=== PATIENT | male | born 1970 | race African-American/Black ===

== ENCOUNTER 2021-02-06 17:51 | Emergency (ER) | payer MEDICARE, SELFPAY ==
[~2021-02-06] VITALS: Ht 177.8 cm; Wt 68.0 kg
[2021-02-06] MEDS ORDERED: SODIUM CHLORIDE 0.9% 1,000 ML IV ONE (18:30)
[2021-02-06 19:32] LABS: HEMATOCRIT. 39.9 % (42.0-52.0); MEAN CORPUSCULAR HEMOGLOBIN 34.4 pg (28.0-32.0); MEAN CORPUSCULAR VOLUME 98.3 fL (80.0-94.0); MEAN PLATELET VOLUME 8.9 fl (7.4-10.4); PLATELET 216 x1000/uL (130-400); RED BLOOD CELL COUNT 4.05 mill/uL (4.7-6.1); RED CELL DISTRIBUTION WIDTH 13.6 % (11.6-14.6)
[2021-02-06 19:34] LABS: CHLORIDE 103 mEq/L (98-107)
[2021-02-06 20:58] LABS: PLATELET ESTIMATE NORMAL
[2021-02-06 21:28] VITALS: BP 113/75
== END 2021-02-06 22:05 | disposition home or self-care (01) ==
LOC: ER 18:05
DX: U07.1 COVID-19 (principal); E86.0 Dehydration; R55 Syncope and collapse
CPT/HCPCS: 36415; 80048; 85025; 93005; 96360; 96361; 99284; C9803; J7030; U0003; U0005

== ENCOUNTER 2021-02-09 15:10 | Emergency (ER) | payer MEDICARE, SELFPAY ==
[~2021-02-09] VITALS: Ht 170.2 cm; Wt 64.0 kg
[2021-02-09 15:35] VITALS: BP 152/86
== END 2021-02-09 16:17 | disposition home or self-care (01) ==
LOC: ER 15:10
DX: U07.1 COVID-19 (principal)
CPT/HCPCS: 99281

== ENCOUNTER 2023-10-21 23:50 | Emergency (ER) | payer MEDICARE ==
[~2023-10-21] VITALS: Ht 172.7 cm; Wt 78.0 kg
[2023-10-22 00:13] VITALS: O2SAT 98
[2023-10-22 00:44] LABS: BASOPHILS % 0.6 % (0.0-2.0); EOSINOPHILS % 0.5 % (0.0-5.0); HEMATOCRIT. 36.9 % (42.0-52.0); HEMOGLOBIN. 12.9 g/dL (14.0-18.0); LYMPHOCYTES % 27.1 % (20.0-50.0); MEAN CORPUSCULAR HEMOGLOBIN 34.6 pg (28.0-32.0); MEAN CORPUSCULAR HGB CONC 34.8 g/dL (31.0-37.0); MEAN CORPUSCULAR VOLUME 99.2 fL (80.0-94.0); MEAN PLATELET VOLUME 7.1 fl (7.4-10.4); NEUTROPHILS % 64.8 % (40.0-76.0); PLATELET 264 x1000/uL (130-400); RED BLOOD CELL COUNT 3.72 mill/uL (4.7-6.1); RED CELL DISTRIBUTION WIDTH 13.4 % (11.6-14.6); WHITE BLOOD COUNT 10.3 x1000/uL (4.5-11.0)
[2023-10-22 00:45] LABS: CHLORIDE 109 mEq/L (98-107); POTASSIUM 3.6 mEq/L (3.5-5.1); SODIUM 140 mEq/L (136-145)
[2023-10-22 00:46] LABS: CALCIUM 8.7 mg/dL (8.7-10.4); CARBON DIOXIDE 26 mEq/L (21-32)
[2023-10-22 00:51] LABS: CREATININE 0.8 mg/dL (0.6-1.3); ETHANOL BLOOD 143 mg/dL (<10); GLUCOSE 98 mg/dL (70-105); UREA NITROGEN BLOOD 13 mg/dL (9-23)
[2023-10-22 00:53] LABS: ACETAMINOPHEN < 2 ug/mL (10-30); ALANINE AMINOTRANSFERASE 9 IU/L (10-49); ALBUMIN 4.4 g/dL (3.2-4.8); ASPARTATE AMINOTRANSFERASE 18 IU/L (<34); BILIRUBIN TOTAL 0.4 mg/dL (0.1-1.0); PROTEIN TOTAL 7.4 g/dL (6.0-8.3)
[2023-10-22] MEDS: SODIUM CHLORIDE 0.9% 1,000 ML IV ONE (01:17)
[2023-10-22] MEDS: ONDANSETRON HCL 4MG/2ML INJ IV STA (01:17)
[2023-10-22 01:38] LABS: CLARITY URINE CLEAR (CLEAR); COLOR URINE DARK YELLOW (YELLOW); GLUCOSE URINE NEGATIVE (NEGATIVE); KETONES URINE TRACE (NEGATIVE); LEUKOCYTE ESTERASE URINE NEGATIVE (NEGATIVE); NITRITE URINE NEGATIVE (NEGATIVE); OCCULT BLOOD URINE NEGATIVE (NEGATIVE); PH URINE 5.5 (4.5-8.0); PROTEIN URINE TRACE (NEGATIVE)
[2023-10-22 02:00] LABS: *AMPHETAMINES SCREEN URINE NEGATIVE (NEGATIVE); *BARBITURATES SCREEN URINE NEGATIVE (NEGATIVE); *BENZODIAZEPINES SCREEN URINE NEGATIVE (NEGATIVE); *COCAINE SCREEN URINE NEGATIVE (NEGATIVE); CANNABINOID URINE SCREEN PRESUMPTIVE POSITIVE (NEGATIVE); ECSTASY MDMA SCREEN URINE NEGATIVE (NEGATIVE); METHADONE URINE SCREEN Neg (NEGATIVE); OPIATES URINE SCREEN NEGATIVE (NEGATIVE); PHENCYCLIDINE URINE SCREEN NEGATIVE (NEGATIVE)
[2023-10-22 02:18] LABS: BACTERIA URINE TRACE; MUCUS URINE 1+ /lpf (NONE/TRACE); RBC URINE NONE SEEN /hpf (0-2); SQUAMOUS EPITHELIAL CELL URINE FEW /lpf (RARE/1+); WBC URINE NONE SEEN /hpf (0-2)
[2023-10-22] MEDS ORDERED: ONDA4TAB50 MT (03:46)
[2023-10-22 03:58] VITALS: BP 108/72; PULSE 93; RESP 14; TEMP 97.9
== END 2023-10-22 04:00 | disposition home or self-care (01) ==
LOC: ER 23:50
DX: F10.129 Alcohol abuse with intoxication, unspecified (principal); R11.2 Nausea with vomiting, unspecified; F12.10 Cannabis abuse, uncomplicated; Y90.6 Blood alcohol level of 120-199 mg/100 ml
CPT/HCPCS: 99283; 80053; 80305; 81003; 80307; 80329; 80320; 82962; 85025; 36415; 96361; 96374; J2405; J7030; G0480

== ENCOUNTER 2024-01-21 22:06 | Emergency (ER) | payer MEDICARE ==
[~2024-01-21] VITALS: Ht 175.3 cm; Wt 73.0 kg
[~2024-01-21 22:06] MED LIST: ONDA4TAB50 MT
[2024-01-21 22:08] VITALS: BP 123/77; PULSE 90; RESP 18; TEMP 98.6; O2SAT 98
[2024-01-21 22:44] LABS: BASOPHILS % 0.5 % (0.0-2.0); EOSINOPHILS % 0.5 % (0.0-5.0); HEMATOCRIT. 38.7 % (42.0-52.0); HEMOGLOBIN. 13.2 g/dL (14.0-18.0); LYMPHOCYTES % 10.3 % (20.0-50.0); MEAN CORPUSCULAR HEMOGLOBIN 33.5 pg (28.0-32.0); MEAN CORPUSCULAR VOLUME 98.5 fL (80.0-94.0); MEAN PLATELET VOLUME 7.6 fl (7.4-10.4); MONOCYTES % 3.6 % (2.0-8.0); NEUTROPHILS % 85.1 % (40.0-76.0); PLATELET 230 x1000/uL (130-400); RED BLOOD CELL COUNT 3.93 mill/uL (4.7-6.1); RED CELL DISTRIBUTION WIDTH 13.8 % (11.6-14.6); WHITE BLOOD COUNT 9.2 x1000/uL (4.5-11.0)
[2024-01-21 22:50] LABS: CHLORIDE 108 mEq/L (98-107); POTASSIUM 3.9 mEq/L (3.5-5.1); SODIUM 139 mEq/L (136-145)
[2024-01-21 22:51] LABS: CARBON DIOXIDE 25 mEq/L (21-32)
[2024-01-21 22:56] LABS: CREATININE 0.9 mg/dL (0.6-1.3); GLUCOSE 101 mg/dL (70-105); UREA NITROGEN BLOOD 15 mg/dL (9-23)
== END 2024-01-22 01:16 | disposition left against medical advice (07) ==
LOC: ER 22:06
DX: R11.2 Nausea with vomiting, unspecified (principal); Z53.21 Procedure and treatment not carried out due to patient leaving prior to being seen by health care provider
CPT/HCPCS: 36415; 80048; 85025